=== PATIENT | female | born 1950 | race Caucasian/White ===

== ENCOUNTER → 2016-04-07 | Day surgery (SDC) | payer BC ==
[~2016-04-07] VITALS: Ht 153.7 cm; Wt 54.3 kg
[~2016-04-07] MED LIST: ACETAMINOPHEN500 M1 PO; ADVIL200 MG PO; ASPIRIN EC81 MG PO; DILAUDID 2MG(HYD2 MG PO; HUMIRA 4040 MG/0.8 SUB-Q; HYDROCODON-ACE1 EAC4 PO; HYOSCYAMINE0.125 MG PO; LEVOTHROID(SYN75 MCG PO; LIPITOR80 MG PO; LORTAB 5-325 M1 EACH PO; METOPROLOL TART25 MG PO; NIFEREX-150) (150 MG PO; NITROSTAT0.4 MG SL; PROTONIX40 MG PO; VITAMIN B-121000 MCG PO; VITAMIN D-32000 UNI1 PO; XARELTO10 MG PO; ZESTRIL2.5 MG PO; ZOFRAN4 MG PO; ZYRTEC10 MG PO
--- NOTE | ~2016-04-07 | OR ---
PATIENT'S NAME: LOKESH NEWELL [facility] AGE: 66 Y [address] ROOM: [place] [address] [place]: 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 PROCEDURE PERFORMED: Right knee manipulation under anesthesia. ANESTHESIA: Propofol. PLATINUM SMITH: Elia Enriquez. COMPLICATIONS: None. INDICATION FOR PROCEDURE: Ms. Newell presents with suboptimal range of motion, almost three months status post revision right total knee arthroplasty. She and her physical therapist note that her range of motion has stagnated despite her physical therapist's best efforts. The patient understands and acknowledges that she will need to stretch more frequently in order to maintain the gains achieved with today's manipulation. They have been informed of the potential for recurrent stiffness, extensor mechanism compromise, and fracture. Informed consent granted. DESCRIPTION OF PROCEDURE: The patient was positioned supine. Propofol anesthesia was administered. Examination under anesthesia demonstrated a 10- degree flexion contracture and flexion to 100 degrees. This range of motion was slightly improved compared to her examination prior to induction of anesthesia (wherein she had a 15-degree flexion contracture and only 90 degrees of flexion). There was no erythema or abnormal warmth at the right knee. A gentle progressive flexion force was applied to the right knee. There were multiple palpable and audible disruptions of adhesions, after which the knee readily flexed with gravity to 130 degrees. Only a moderate amount of force was required. Knee was subsequently manipulated in extension and full extension could be achieved. PATIENT'S NAME: LOKESH NEWELL [facility] AGE: 66 Y [address] ROOM: [place] [address] [place]: [facility] [place]: 04/07/2016 OR/Procedure Report DISCHARGE DATE: FAMILY PHYSICIAN: Maye Yeboah ATTENDING PHYSICIAN: STERLING GOMEZ I asked the patient's to take a picture of the knee in flexion and extension after the manipulation under anesthesia (in order to show this to the patient, herself, as well as to her physical therapist). MD JASS HERRING/kaz /[id number] d: 04/07/161932 t: 04/13/162113, OPERATIVE SUMMARY
== END ==
LOC: GPOC 08:30 → EDSTATUS 08:30 → GSDC 08:35 → GPOC 04-08 08:30
PROC: 0SSCXZZ Reposition Right Knee Joint, External Approach (ICD-10-PCS; principal; 2016-04-07)
DX: M24.661 Ankylosis, right knee (principal); I25.2 Old myocardial infarction; I10 Essential (primary) hypertension; E07.9 Disorder of thyroid, unspecified; M06.9 Rheumatoid arthritis, unspecified; Z96.651 Presence of right artificial knee joint; Z79.82 Long term (current) use of aspirin; Z79.899 Other long term (current) drug therapy
CPT/HCPCS: J2001; J7030